=== PATIENT | male | born 1985 | race Caucasian/White ===

== ENCOUNTER 2016-09-09 01:40 | Emergency (ER) | payer BC | END 2016-09-09 01:50 | disposition left against medical advice (07) | LOC: ER 01:40 | DX: Z53.21 Procedure and treatment not carried out due to patient leaving prior to being seen by health care provider (principal) ==

== ENCOUNTER 2018-02-25 02:32 | Emergency (ER) | payer SELFPAY ==
[2018-02-25] MEDS ORDERED: ONDANSETRON HCL INJ/PF 4 MG/2 ML SDV IV ONE (02:48)
[2018-02-25] MEDS ORDERED: NORMAL SALINE 1000 ML 1,000 ML IV ONE (02:48)
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
[2018-02-25] MEDS ORDERED: LIDOCAINE 1% INJ (10 MG/ML) 10 ML MDV INJ ONE (03:55)
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
[2018-02-25] MEDS ORDERED: LIDOCAINE 1% INJ-PF (10 MG/ML) 30 ML SDV INJ ONE (05:17)
[2018-02-25] MEDS ORDERED: ONDANSETRON 4 MG TAB.RAPDIS PO ONE (06:13)
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
[2018-02-25] MEDS ORDERED: ONDANSETRON ODT 4 MG TAB (6 TAB/ER DISP) PO PRN (06:14)
[2018-02-25 06:37] VITALS: BP 102/72
--- NOTE | 2018-02-25 09:42 | EKG REPORT ---
SEVERITY:- OTHERWISE NORMAL ECG - SINUS TACHYCARDIA : Confirmed by: Eli Muro 25-Feb-2018 09:42:12
== END 2018-02-25 06:51 | disposition home or self-care (01) ==
LOC: ER 02:32
PROC: 0HQ0XZZ Repair Scalp Skin, External Approach (ICD-10-PCS; principal; 2018-02-25)
DX: S00.81XA Abrasion of other part of head, initial encounter (principal); S01.01XA Laceration without foreign body of scalp, initial encounter; F10.929 Alcohol use, unspecified with intoxication, unspecified; Y04.0XXA Assault by unarmed brawl or fight, initial encounter
CPT/HCPCS: 93005; 99285; 82962; 73130; 70450; 72125; 93010; 12001; L0172; S0119

== ENCOUNTER 2018-03-07 16:15 | Emergency (ER) | payer SELFPAY ==
[2018-03-07 16:32] VITALS: BP 130/84
--- NOTE | 2018-03-07 17:35 | ER Document Report ---
HPI - HPI Patient complains to provider of: staple removed from head Onset: Other - 02/25/18 Onset/Duration: Gone Quality of pain: No pain Severity: None Pain Level: Denies Associated Symptoms: None Exacerbated by: Denies Relieved by: Denies Similar symptoms previously: Yes Recently seen / treated by doctor: Yes - ROS ROS below otherwise negative: Yes - CONSTITUTIONAL Constitutional: DENIES: Fever, Chills - EENT EENT: DENIES: Sore Throat, Ear Pain, Nasal Drainage-Clear, Nasal Drainage- Purulent, Congestion, Eye problems - NEURO Neurology: DENIES: Headache, Weakness, Vision blurred, Dizzinesss / Vertigo - CARDIOVASCULAR Cardiovascular: DENIES: Chest pain - RESPIRATORY Respiratory: DENIES: Trouble Breathing, Coughing - GASTROINTESTINAL Gastrointestinal: DENIES: Abdominal Pain, Nausea, Patient vomiting, Diarrhea, Constipation, Black / Bloody Stools - URINARY Urinary: DENIES: Dysuria, Urgency, Frequency - REPRODUCTIVE Reproductive: DENIES: :, Postmenopausal, Abnormal bleeding / discharge - MUSCULOSKELETAL Musculoskeletal: DENIES: Extremity pain, Back Pain, Neck Pain, Swelling - DERM Skin Color: Normal Skin Problems: Laceration - Healing laceration to the posterior scalp Past Medical History - General Information source: Patient - Social History Smoking Status: Never Smoker Cigarette use (# per day): No Chew tobacco use (# tins/day): No Smoking Education Provided: No Frequency of alcohol use: Occasional Drug Abuse: None Lives with: Family Family History: Reviewed & Not Pertinent Patient has suicidal ideation: No Patient has homicidal ideation: No - Past Medical History Cardiac Medical History: Reports: None Pulmonary Medical History: Reports: None EENT Medical History: Reports: None Neurological Medical History: Reports: None Endocrine Medical History: Reports: None Renal/ Medical History: Reports: None Malignancy Medical History: Reports None GI Medical History: Reports: None Musculoskeletal Medical History: Reports None Skin Medical History: Reports None Psychiatric Medical History: Reports: None Traumatic Medical History: Reports: None Infectious Medical History: Reports: None Surgical Hx: Negative Past Surgical History: Reports: None - Immunizations Immunizations up to date: Yes Hx Diphtheria, Pertussis, Tetanus Vaccination: Yes Vertical Provider Document - CONSTITUTIONAL Agree With Documented VS: Yes General Appearance: WD/WN, No Apparent Distress - INFECTION CONTROL TRAVEL OUTSIDE OF THE [place] IN LAST 30 DAYS: No - HEENT HEENT: Atraumatic, Normal ENT Exam, PERRLA. negative: Normocephalic - Healing laceration to the scalp. Tawnya intact will be removed - NECK Neck: Normal Inspection, Supple - RESPIRATORY Respiratory: Breath Sounds Normal, No Respiratory Distress, Chest Non-Tender - CARDIOVASCULAR Cardiovascular: Regular Rate, Regular Rhythm, No Murmur - BACK Back: Normal Inspection - MUSCULOSKELETAL/EXTREMETIES Musculoskeletal/Extremeties: MAEW, FROM, Non-Tender - NEURO Level of Consciousness: Awake, Alert, Appropriate Motor/Sensory: No Motor Deficit, No Sensory Deficit, No Pronator Drift - DERM Integumentary: Warm, Dry, No Rash, Laceration - Healing laceration to the posterior scalp Course - Re-evaluation Re-evalutation: 03/07/18 17:59 Bostic were removed from the posterior scalp patient tolerated well no bleeding no signs or symptoms of infection no redness no inflammation - Vital Signs Vital signs: Temp Pulse Resp BP Pulse Ox 98.2 F 92 16 130/84 H 97 03/07/18 16:31 03/07/18 16:31 03/07/18 16:31 03/07/18 16:31 03/07/18 16:31 Discharge - Discharge Clinical Impression: Removal of staple Condition: Stable Disposition: HOME, SELF-CARE Instructions: Family Physicians / Practices, Staple Removal ([facility]) Additional Instructions: FOLLOW-UP CARE: If you have been referred to a physician for follow-up care, call the physician s office for an appointment as you were instructed or within the next two days. If you experience worsening or a significant change in your symptoms, notify the physician immediately or return to the Emergency Department at any time for re-evaluation. Forms: Elevated Blood Pressure, Return to Work
== END 2018-03-07 17:42 | disposition home or self-care (01) ==
LOC: ER 16:15
DX: S01.01XD Laceration without foreign body of scalp, subsequent encounter (principal); X58.XXXD Exposure to other specified factors, subsequent encounter